=== PATIENT | female | born 1960 | race Hispanic/Latino ===

== ENCOUNTER 2019-03-18 15:47 | Observation (INO) | payer OTHER ==
[~2019-03-18] VITALS: Ht 160 cm; Wt 56.7 kg
--- OUTSIDE RECORDS SUMMARY | 2019-03-18 15:53 | XMS REPORT ---
Author Author [facility] Address Unknown Phone Unavailable Care Team Providers Care Flight Follower Name Role Phone Unavailable Unavailable Payers Payer Name Policy Type Policy Number Effective Date Expiration Date Problems This patient has no known problems. Allergies, Adverse Reactions, Alerts Allergy Name Allergy Type Status Severity Reaction(s) Onset Date Inactive Date Treating Clinician Comments No Known Allergies DA Active U 2019-01-25 00:00:00 Medications This patient has no known medications. Results Test Description Test Time Test Comments Text Results Atomic Results Result Comments BASIC METABOLIC PANEL 2019-01-25 18:10:00 SODIUM (test code=NA) 130 mEq/L 134-147 POTASSIUM (test code=K) 4.5 mEq/L 3.4-5.0 CHLORIDE (test code=CL) 97 mEq/L 100-108 CARBON DIOXIDE (test code=CO2) 27 mEq/L 21-33 ANION GAP (test code=GAP) 11 0-20 GLUCOSE (test code=GLU) 306 mg/dL 70-110 BLOOD UREA NITROGEN (test code=BUN) 31 mg/dL 7-18 GLOMERULAR FILTRATION RATE (test code=GFR) 73.7 90-95 Units of measure=ml/min/1.73 m2 CREATININE (test code=CREAT) 0.8 mg/dL 0.6-1.3 CALCIUM (test code=CA) 9.4 mg/dL 8.0-10.5 URINALYSIS [id number] 18:08:00* Test Item Value Reference Range Comments UA COLOR (test code=COLU) YELLOW YEL/STRAW UA APPEARANCE (test code=APPU) SL CLOUDY CLEAR UA GLUCOSE DIPSTICK (test code=DGLUU) 3+ NEGATIVE UA BILIRUBIN DIPSTICK (test code=BILU) NEGATIVE NEGATIVE UA KETONE DIPSTICK (test code=KETU) NEGATIVE NEGATIVE UA SPECIFIC GRAVITY (test code=SGU) 1.017 1.005-1.030 UA BLOOD DIPSTICK (test code=PANCHO) NEGATIVE NEGATIVE UA PH DIPSTICK (test code=VEGA) 5.0 5.0-7.0 UA PROTEIN DIPSTICK (test code=PROU) NEGATIVE NEGATIVE UA UROBILINIOGEN DIPSTICK (test code=URO) 0.2 mg/dL 0.2-1.0 UA NITRITE DIPSTICK (test code=SOFIA) POSITIVE NEGATIVE UA LEUKOCYTE ESTERASE DIPSTICK (test code=LEUU) 2+ NEGATIVE UA WBC (test code=WBCU) 21-50 WBC/HPF 0-3 UA RBC (test code=RBCU) 0-3 RBC/HPF 0-3 UA BACTERIA (test code=BACU) 3+ /HPF NONE SEEN UA SQUAMOUS CELLS (test code=SQU) 0-5 /HPF NONE SEEN UA MUCUS (test code=MUCU) TRACE /LPF NONE SEEN CBC W/AUTO [id number] 17:59:00* Test Item Value Reference Range Comments WHITE BLOOD CELL (test code=WBC) 6.99 x10 3/uL 4.5-11.0 RED BLOOD CELL (test code=RBC) 3.59 x10 6/uL 3.54-5.02 HEMOGLOBIN (test code=HGB) 11.2 g/dL 11.0-15.0 HEMATOCRIT (test code=HCT) 32.3 % 33.0-45.0 MEAN CELL VOLUME (test code=MCV) 90.0 fL 81.0-99.0 MEAN CELL HGB (test code=MCH) 31.2 pg 27.0-33.0 MEAN CELL HGB CONCETRATION (test code=MCHC) 34.7 g/dL 33.0-37.0 RED CELL DISTRIBUTION WIDTH CV (test code=RDW) 11.8 % 11.5-14.5 RED CELL DISTRIBUTION WIDTH SD (test code=RDW-SD) 38.7 fL 37.0-54.0 PLATELET COUNT (test code=PLT) 251 x10 3/uL 150-400 MEAN PLATELET VOLUME (test code=MPV) 10.0 fL 7.0-9.0 NEUTROPHIL % (test code=NT%) 75.3 % 56.0-77.0 IMMATURE GRANULOCYTE % (test code=IG%) 0.3 % 0.0-2.0 LYMPHOCYTE % (test code=LY%) 15.9 % 14.0-32.0 MONOCYTE % (test code=MO%) 8.0 % 4.8-9.0 EOSINOPHIL % (test code=EO%) 0.1 % 0.3-3.7 BASOPHIL % (test code=BA%) 0.4 % 0.0-2.0 NUCLEATED RBC % (test code=NRBC%) 0.0 % 0-0 NEUTROPHIL # (test code=NT#) 5.26 x10 3/uL 2.0-7.6 IMMATURE GRANULOCYTE # (test code=IG#) 0.02 x10 3/uL 0.00-0.03 LYMPHOCYTE # (test code=LY#) 1.11 x10 3/uL 1.0-3.8 MONOCYTE # (test code=MO#) 0.56 x10 3/uL 0.1-0.8 EOSINOPHIL # (test code=EO#) 0.01 x10 3/uL 0.0-0.2 BASOPHIL # (test code=BA#) 0.03 x10 3/uL 0.0-0.2 NUCLEATED RBC # (test code=NRBC#) 0.00 x10 3/uL 0.0-0.1 MANUAL DIFF REQUIRED (test code=MDIFF) NO VENOUS BLOOD [id number] 17:38:00* Test Item Value Reference Range Comments VENOUS BLOOD GAS PH (test code=PHV) 7.38 7.33-7.45 VENOUS BLOOD GAS PCO2 (test code=PCO2V) 41 mmHg 43-47 VENOUS BLOOD GAS PO2 (test code=PO2V) 36 mmHg 10-50 VBG HCO3 (test code=HCO3V) 24.3 mmol/L 22-27 VBG BASE EXCESS (test code=RADHA) -1.0 mmol/L -4.0-4.0 VENOUS BLOOD GAS O2 SAT. (test code=O2SATV) 67 % 60-80 VENOUS BLOOD GAS DELIVERY (test code=DELV) Room Air Performed by certified rotary machine operator at [facility] VENOUS BLOOD GAS TEMP (test code=TEMPV) 98.6 F VENOUS BLOOD GAS SITE (test code=SITEV) Other VENOUS TCO2 (test code=TCO2V) 26 - XR CHEST 1 [id number] 17:13:00 FAX: Rohan Low MD [phone] [place]: St: REG FAX: Ahmet Link MD [phone] Name: GARY JIMÉNEZ [facility] [place] : 1960 Age/S: 58/F [address] [place] [address] Unit #: [id number] Loc: [place] [address] Phys: Rohan Low MD Acct: [id number] Dis Date: Status: REG ER PHONE #: [phone] Exam Date: 01/25/2019 1706 FAX #: [phone] Reason: cough EXAMS: CPT CODE: [id number] XR CHEST 1 V [id number] PROCEDURE: - XR CHEST 1 V INDICATION: 58 years Female, cough. COMPARISON: None. FINDINGS: Cardiac silhouette is enlarged. Thoracic aorta appears normal. Pulmonary vasculature is normal. No lobar consolidation, effusion, or pneumothorax. Bony skeleton is intact. IMPRESSION: Enlarged cardiac silhouette. Pericardial effusion is not excluded. Otherwise, no acute intrathoracic findings SL: ADELINA at [id number] Reported and signed by: Nnamdi Florentino M.D. CC: Rohan Low MD; Ahmet Lara MD Technologist: [facility] Date/Time/By: 01/25/2019 (0240) : By: [email or web address] Orig Print D/T: S: 01/25/2019 (5436) PAGE 1 Signed Report [id number] 16:41:00* Test Item Value Reference Range Comments GLUBED (test code=GLUBED) 356 MG/DL 70-110 Performed by certified rotary machine operator at [facility]
[2019-03-18] MEDS ORDERED: MORPHINE SULFATE 2 MG/ML SYR 1ML IV ONE (16:36)
--- NOTE | 2019-03-18 16:41 | Diagnostic Imaging Report ---
Exam: Left humerus 2 views and shoulder 2 views History: Pain Comparison: None. Findings: Transverse fracture of the humeral neck with mild impaction. No significant displacement or angulation. Impression: Nonsignificantly displaced transverse fracture of the humeral neck Signed by: Dr. Angel Whiting M.D. on 03/18/2019 4:38 PM
[2019-03-18] MEDS ORDERED: KETOROLAC TROMETHAMINE 30 MG/ML VIAL IM STA (16:55)
[2019-03-18] MEDS ORDERED: ONDANSETRON HCL INJ 2MG/ML 2ML 2 MG/ML VIAL IV PRN (17:45)
[2019-03-18] MEDS ORDERED: DEXTROSE 50% SYRINGE 50 ML IV PRN (17:45)
[2019-03-18] MEDS ORDERED: MORPHINE SULFATE 2 MG/ML SYR 1ML IV PRN (17:45)
[2019-03-18] MEDS ORDERED: MORPHINE SULFATE INJ 4 MG/ML INJ 1ML IV PRN (18:00)
[2019-03-18] MEDS ORDERED: MORPHINE SULFATE 2 MG/ML SYR 1ML IV STA (18:11)
[2019-03-18] MEDS ORDERED: MORPHINE SULFATE INJ 4 MG/ML INJ 1ML IV ONE (18:15)
[2019-03-18] MEDS: CIPROFLOXACIN 500 MG TAB PO SCH (18:46)
--- NOTE | 2019-03-18 18:55 | NUR ---
REPORT TO CARSON SHANE ALL QUESTIONS ANSWERED
--- NOTE | 2019-03-18 19:28 | NUR ---
[facility] CALLED FOR TRANSPORT
--- NOTE | 2019-03-18 19:29 | NUR ---
ETA 15-30 MIN
[2019-03-18] MEDS: INSULIN REGULAR, HUMAN 100 UNIT/1 ML 3ML VIAL SQ SCH (21:00)
[2019-03-18] MEDS ORDERED: INSULIN REGULAR, HUMAN 100 UNIT/1 ML 3ML VIAL SQ SCH (21:00)
[2019-03-18 22:19] VITALS: BP 119/70
[2019-03-18 22:28] VITALS: BP 119/70
[2019-03-18] MEDS ORDERED: LISINOPRIL10 MG PO (22:55)
[2019-03-18] MEDS ORDERED: GABAPENTIN100 MG PO (22:56)
[2019-03-18] MEDS ORDERED: METFORMIN HCL500 M2 PO (22:58)
[2019-03-18] MEDS ORDERED: LEVOTHYROXINE137 MCG PO (23:02)
[2019-03-18] MEDS ORDERED: ASPIR 8181 MG PO (23:02)
[2019-03-18] MEDS ORDERED: GLIPIZIDE5 MG PO (23:03)
[2019-03-18] MEDS ORDERED: ATORVASTATIN CA10 MG PO (23:05)
[2019-03-18] MEDS ORDERED: PIOGLITAZONE HC45 MG PO (23:06)
[2019-03-18 23:21] VITALS: BP 92/57
[2019-03-19] MEDS ORDERED: HYDROMORPHONE 2MG/ML 2 MG/ML ML IV PRN
[2019-03-19 03:59] VITALS: BP 123/68
[2019-03-19 07:29] VITALS: BP 140/65
[2019-03-19] MEDS: INSULIN REGULAR, HUMAN 100 UNIT/1 ML 3ML VIAL SQ SCH ×3 (07:30→21:45)
[2019-03-19] MEDS: CIPROFLOXACIN 500 MG TAB PO SCH ×2 (08:30→21:43)
[2019-03-19 09:41] LABS: CREATINE KINASE 23 IU/L (29-168)
--- NOTE | 2019-03-19 10:44 | NUR ---
SOCIAL WORK INITIAL ASSESSMENT Supervisor Adult Education to bedside to discuss plan of care with patient/family. CM/SW role and care transitions discussed. Anticipated discharge plan discussed along with duration of care. CM/SW discussed patients right to make decisions in care. CM/SW work hours given. Patient lives: IN HOUSE WITH DAUGHTER AND SON IN LAW Admit/Transfer: VIA ED POA/Emergency contact: OSWALD NORTON [phone] Current/Previous Home Health: NONE PCP/Follow-up Care: BRUNA DAMIAN Current/Previous DME: NONE Other Services: NONE Employment Status: WORK FOR [employer] IN [place] [employer] AND AT [employer] Areas of Concerns: NONE Referral Needs: NONE Education Needs: NONE IMM/SUH given and signed (if applicable): UPON ADMISSION Goal for discharge: RETURN HOME CM/SW left business card at the bedside with contact information. Name and number was also written on the patients whiteboard. Patient verbalized understanding of discussion. CM will follow-up with ongoing discharge and transition of care needs.
[2019-03-19 11:01] VITALS: BP 134/72
--- NOTE | 2019-03-19 13:25 | NUR ---
Visit made by the Spiritual Care Department Pastoral Visitor, Rubina Alonso. PV provided pastoral presence, prayer, hospitality, and supportive listening. Pastoral Visitor informed pt/family of the scope of [employer] and availability. LUIS WALKER [employer] Spiritual Care Department O: [phone] Pager: [phone] ([phone] number calling from)
[2019-03-19] MEDS ORDERED: ONDANSETRON HCL 4 MG ORAL DISINTEGRATING TAB PO PRN (14:15)
[2019-03-19] MEDS: GABAPENTIN 100 MG CAP PO SCH ×2 (15:04→21:43)
[2019-03-19 15:17] VITALS: BP 130/77
[2019-03-19] MEDS: METFORMIN HCL 500 MG TAB CR PO SCH (17:46)
[2019-03-19] MEDS: GLIPIZIDE 5 MG TAB PO SCH (17:46)
[2019-03-19 18:49] LABS: CREATINE KINASE 25 IU/L (29-168)
--- NOTE | 2019-03-19 18:50 | NUR ---
Got report from previous nurse. Call light within reach. Patient in bed. Daughter at bedside.
[2019-03-19 20:31] VITALS: BP 131/71
[2019-03-19] MEDS ORDERED: ATORVASTATIN 10 MG TAB PO SCH (21:00)
[2019-03-19] MEDS ORDERED: INSULIN GLARGINE 100 UNITS/ML VIAL SQ SCH (21:00)
[2019-03-20] VITALS: BP 138/68
[2019-03-20 04:00] VITALS: BP 112/62
[2019-03-20] MEDS ORDERED: LEVOTHYROXINE SODIUM 112 MCG TAB PO SCH (06:00)
[2019-03-20] MEDS ORDERED: LEVOTHYROXINE SODIUM 25 MCG TABLET PO SCH (06:00)
--- NOTE | 2019-03-20 07:12 | NUR ---
Gave report to oncoming nurse. Call light within reach. Patient in bed.
[2019-03-20] MEDS ORDERED: INSULIN GLARGINE 100 UNITS/ML VIAL SQ SCH (07:30)
[2019-03-20 08:00] VITALS: BP 120/69
[2019-03-20] MEDS: INSULIN REGULAR, HUMAN 100 UNIT/1 ML 3ML VIAL SQ SCH ×2 (08:10→12:02)
[2019-03-20] MEDS: METFORMIN HCL 500 MG TAB CR PO SCH (08:56)
[2019-03-20] MEDS: CIPROFLOXACIN 500 MG TAB PO SCH (08:56)
[2019-03-20] MEDS: GABAPENTIN 100 MG CAP PO SCH (08:56)
[2019-03-20] MEDS: GLIPIZIDE 5 MG TAB PO SCH (08:56)
[2019-03-20] MEDS ORDERED: ATORVASTATIN 10 MG TAB PO SCH (09:00)
[2019-03-20] MEDS ORDERED: LISINOPRIL 10 MG TAB PO SCH (09:00)
[2019-03-20] MEDS ORDERED: PIOGLITAZONE HCL 45 MG TAB PO SCH (09:00)
[2019-03-20] MEDS ORDERED: ASPIRIN 81 MG CHEW TAB PO SCH (09:00)
[2019-03-20] MEDS ORDERED: NON-FORMULARY MEDICATION (Levothyroxine Sodium 137 MCG) PO SCH (09:00)
[2019-03-20 12:20] VITALS: BP 107/59
[2019-03-20] MEDS ORDERED: TYLENOL WITH C1 EACH PO (13:08)
[2019-03-20] MEDS ORDERED: LEVEMIR100 UNIT/1 SQ ×2 (13:11→13:12)
--- NOTE | 2019-03-20 13:11 | NUR ---
Nutrition Screen Note RD Recommendation for Physician: -Continue ADA diet as ordered -RD provided diet education on 03/20. Plan of Care: RD following, monitoring for tolerance and adequacy, diet education Nutrition reason for involvement: RN consult diabetic teaching Primary Diagnose(s): syncope PMH: DM 13 years Ht: 63in Wt: 125lb BMI: 22.1kg/m2 IBW: 115lb RD Assessment: (03/20) Chart reviewed. Labs and meds reviewed. 58yo F, who was admitted for syncope. RD was consulted for diabetic teaching. BG 200 250. Visited pt in the room. Pt reported good appetite with 100% observed PO intake. No complains of nausea or vomiting. Pt denied any chewing or swallowing difficulty. Stable weight. RD provided diabetic education as consulted. Plan to d/c today. Current Diet: ADA diet Malnutrition Evaluation (03/20) The patient does not meet criteria for a specified degree of malnutrition at this time. Will re-evaluate at follow-up as appropriate. Diet Education Needs Assessment: Diet education indicated, pt was agreeable with plan. Learner(s): pt Time spent: 30 minutes Barriers: Habits of eating out and snacking Cultural/Language Modifications: No cultural/language modifications noted. Pt speaks Turkish. Readiness: Pt eager to learn. Method: Explanation, handouts Topics: Carbohydrate exchanges, Carbohydrate counting handouts, Reading the nutrition label, meal planning tips, exercise tips, servings/portion sizes, S/S of hypo & hyperglycemia Understanding/Compliance: Expect good understanding/compliance from pt. Will benefit from reinforcement. All questions have been answered. Nutrition Care Level: low Signed: Estela Johnson, MS, RD, LD
[2019-03-20 16:00] VITALS: BP 112/65
== END 2019-03-20 16:38 | disposition home or self-care (01) ==
LOC: ER 15:47 → ERHOLD 17:49 → IMCU 20:45
DX: R55 Syncope and collapse (principal); I10 Essential (primary) hypertension; E11.9 Type 2 diabetes mellitus without complications; S42.212A Unspecified displaced fracture of surgical neck of left humerus, initial encounter for closed fracture; E78.5 Hyperlipidemia, unspecified; E03.9 Hypothyroidism, unspecified; Z79.4 Long term (current) use of insulin
CPT/HCPCS: 36415; 80053; 81003; 82550; 82553; 82948; 84484; 85025; 93005; 99284; G0378; J1815; J1885; J2270; J2405

== ENCOUNTER 2019-05-23 10:16 | Outpatient (RCR) | payer OTHER ==
[~2019-05-23 10:16] MED LIST: ASPIR 8181 MG PO; ATORVASTATIN CA10 MG PO; GABAPENTIN100 MG PO; GLIPIZIDE5 MG PO; LEVEMIR100 UNIT/1 SQ; LEVOTHYROXINE137 MCG PO; LISINOPRIL10 MG PO; METFORMIN HCL500 M2 PO; PIOGLITAZONE HC45 MG PO; TYLENOL WITH C1 EACH PO
== END 2019-05-26 ==
LOC: OT 10:16
PROVIDERS: ATTEND Specialist
DX: S42.202D Unspecified fracture of upper end of left humerus, subsequent encounter for fracture with routine healing (principal); M25.512 Pain in left shoulder; M25.612 Stiffness of left shoulder, not elsewhere classified; R53.1 Weakness

== ENCOUNTER → 2019-06-21 | Outpatient (CLI) | payer OTHER ==
--- NOTE | 2019-06-21 15:23 | Diagnostic Imaging Report ---
EXAM: Renal Ultrasound INDICATION: ^MICROSCOPIC HEMATURIA COMPARISON: None TECHNIQUE: Transverse and longitudinal images of the kidneys and bladder were obtained. FINDINGS: Right Kidney: Length: 10.5 cm Appearance: Normal echogenicity. Collecting system: No hydronephrosis Stones: None Cyst/Mass: None Left Kidney: Length: 12 point cm Appearance: Normal echogenicity. Collecting system: No hydronephrosis Stones: None Cyst/Mass: None Bladder: No stones or solid mass lesions or wall thickening. Prevoid volume estimate of 20.8 cc. Right ureteral jet seen. IMPRESSION: No renal calculi or hydronephrosis. Signed by: Josse Kaplan MD on 06/21/2019 3:20 PM
== END ==
LOC: US 14:31
PROVIDERS: ATTEND Urology
DX: R31.21 Asymptomatic microscopic hematuria (principal)
CPT/HCPCS: 76770

== ENCOUNTER → 2019-06-26 | Outpatient (RCR) | payer OTHER | LOC: OT 05-27 12:38 | PROVIDERS: ATTEND Specialist | DX: S42.302A Unspecified fracture of shaft of humerus, left arm, initial encounter for closed fracture (principal); M25.512 Pain in left shoulder; M25.612 Stiffness of left shoulder, not elsewhere classified; R53.1 Weakness ==

== ENCOUNTER 2019-07-24 14:57 | Outpatient (RCR) | payer OTHER | END 2019-07-27 | LOC: OT 14:57 | PROVIDERS: ATTEND Specialist | DX: S42.202D Unspecified fracture of upper end of left humerus, subsequent encounter for fracture with routine healing (principal); M25.512 Pain in left shoulder; M25.612 Stiffness of left shoulder, not elsewhere classified; R53.1 Weakness ==

== ENCOUNTER 2019-08-01 11:57 | Outpatient (RCR) | payer OTHER | END 2019-08-26 | LOC: OT 11:57 | PROVIDERS: ATTEND Specialist | DX: S42.222A 2-part displaced fracture of surgical neck of left humerus, initial encounter for closed fracture (principal) ==

== ENCOUNTER → 2024-11-22 | Day surgery (SDC) | payer OTHER ==
[~2024-11-22] MED LIST changes: +BASAGLAR K100 UNIT/1 SQ; +HYOSCYAMINE SULFATE 0.5 MG/ML INJ ONE; +LIDOCAINE HCL 2% LOCAL INJ 5 ML SDV VIAL INJ ONE; +MIDAZOLAM HCL 2 MG/2 ML VIAL ONE; +PROPOFOL IV EMULSION 10 MG/ML 20 ML VIAL ONE
[2024-11-22] MEDS: LACTATED RINGER'S 1,000 ML ONE (07:53)
[2024-11-22 10:46] VITALS: TEMP 97
[2024-11-22 11:10] VITALS: BP 159/79; PULSE 84; RESP 16; O2SAT 99
== END | disposition home or self-care (01) ==
LOC: OR 07:21
PROVIDERS: ATTEND Internal Medicine Gastroenterology
DX: Z12.11 Encounter for screening for malignant neoplasm of colon (principal); D12.2 Benign neoplasm of ascending colon; D12.3 Benign neoplasm of transverse colon; D12.4 Benign neoplasm of descending colon; K64.8 Other hemorrhoids; R01.1 Cardiac murmur, unspecified; I10 Essential (primary) hypertension; E78.5 Hyperlipidemia, unspecified; E11.9 Type 2 diabetes mellitus without complications; Z01.810 Encounter for preprocedural cardiovascular examination; Z79.82 Long term (current) use of aspirin; Z79.84 Long term (current) use of oral hypoglycemic drugs; Z79.899 Other long term (current) drug therapy
CPT/HCPCS: 45381; 45384; 45385; 93005; J1980; J2003; J2704; J7121; J2250